=== PATIENT | male | born 1995 | race Caucasian/White ===

== ENCOUNTER 2024-11-13 10:49 | Emergency (ER) | payer BC, MEDICAID ==
[~2024-11-13] VITALS: Ht 172.7 cm; Wt 63.3 kg
[2024-11-13 13:27] VITALS: BP 115/69; TEMP 98.9; O2SAT 99
== END 2024-11-13 14:04 | disposition home or self-care (01) ==
LOC: EDBD 10:49 → M ED 10:49
DX: F32.A Depression, unspecified (principal); T69.9XXA Effect of reduced temperature, unspecified, initial encounter